=== PATIENT | female | born 2005 | race Hispanic/Latino ===

== ENCOUNTER 2025-03-11 03:40 | Emergency (ER) | payer MEDICAID ==
[~2025-03-11] VITALS: Ht 152.4 cm; Wt 131.5 kg
--- NOTE | 2025-03-11 03:45 | NUR ---
UA CUP PROVIDED
--- NOTE | 2025-03-11 04:21 | ERN ---
General Chief Complaint: Abdominal Pain Stated Complaint: ABD PAIN Time Seen by MD: 04:16 Source: patient History of Present Illness Initial Comments Patient is an obese 19-year-old female who comes in with pain starting in her subxiphoid process migrating out words and around to her back both sides for two days. Her only past medical history is a increased cholesterol. She has never had this pain before. No other symptoms. Allergies: Coded Allergies: No Known Allergies (Unverified Allergy, Unknown, 03/11/25) Past Medical History Past Medical History: No Pertinent History Past Surgical History: None Female( History) LMP: Feb 26, 2025 Constitutional: (-) chills, (-) diaphoresis, (-) fever, (-) malaise, (-) weakness, (-) other documentation EENTM: (-) eye pain, (-) blurred vision, (-) tearing, (-) double vision, (-) ear pain, (-) ear discharge, (-) nose pain, (-) nose congestion, (-) throat pain, (-) Throat swelling, (-) mouth pain, (-) tooth pain, (-) mouth swelling, (-) other documentation Respiratory: (-) cough, (-) orthopnea, (-) short of breath, (-) stridor, (-) wheezing, (-) other documentation Cardiovascular: (-) chest pain, (-) edema, (-) palpitations, (-) syncope, (-) dyspnea on exertion, (-) other documentation Gastrointestinal/Abdominal: (-) nausea, (-) vomiting, (-) diarrhea, (-) abdominal pain, (-) abdominal distention, (-) constipation, (-) rectal bleeding, (-) dark stool/melena, (-) other documentation Genitourinary: (-) vaginal discharge, (-) vaginal bleeding, (-) dysuria, (-) frequency, (-) hematuria, (-) pain, (-) other documentation Musculoskeletal: (-) Neck pain, (-) back pain, (-) Flank Pain, (-) joint pain, (-) joint swelling, (-) muscle pain, (-) muscle stiffness, (-) gout, (-) other documentation Skin: (-) laceration, (-) contusion, (-) abrasion, (-) abscess, (-) rash, (-) change in color, (-) change in hair, (-) change in nails, (-) diaphoresis, (-) dryness, (-) other documentation Neuro: (-) altered mental status, (-) headache, (-) syncope, (-) paralysis, (-) numbness, (-) seizure, (-) pre-existing deficit, (-) tremors, (-) weakness, (-) dizziness, (-) slurred speech, (-) vertigo, (-) other documentation Physical Exam General Appearance: (+) no apparent distress Orientation: (+) alert Head/Face Trauma: No Eye: bilateral eye normal inspection, bilateral eye PERRL, bilateral eye EOMI Ear, Nose, Throat: (+) hearing grossly normal, (+) normal ENT inspection Neck: (+) normal inspection, (+) supple Respiratory: (+) chest non-tender, (+) lungs clear, (+) well ventilated Heart: (+) regular, (+) no gallop Vascular: (+) no edema, (+) normal peripheral pulse Gastrointestinal: (+) soft, (+) non-tender, (+) bowel sound present Results Laboratory and Microbiology Lab and Micro Result Laboratory Tests Test 03/11/25 04:59 03/11/25 05:08 Urine Color YELLOW (YELLOW) Urine Appearance CLEAR (CLEAR) Urine pH 6.0 (5.0-8.0) Urine Specific [place] 1.026 (1.001-1.031) Urine Protein NEGATIVE mg/dL (NEGATIVE) Urine Glucose (UA) NEGATIVE mg/dL (NEGATIVE) Urine Ketones NEGATIVE mg/dL (NEGATIVE) Urine Occult Blood NEGATIVE (NEGATIVE) Urine Nitrate NEGATIVE (NEGATIVE) Urine Bilirubin NEGATIVE mg/dL (NEGATIVE) Urine Urobilinogen 2.0 mg/dL (0.2-1.0) H Urine Leukocyte Esterase NEGATIVE Emily/uL Urine RBC 0-1 /HPF (0-1) Urine WBC 2-5 /HPF (0-1) H Urine Squamous Epithelial Cells RARE /HPF (0-2) Urine Bacteria None /HPF (None Seen) White Blood Count 11.2 K/uL (4.8-10.8) H Red Blood Count 4.34 MIL/uL (4.00-5.50) Hemoglobin 12.1 g/dL (12.0-16.0) Hematocrit 37.2 % (36-48) Mean Corpuscular Volume 85.7 fL (80-100) Mean Corpuscular Hemoglobin 27.9 pg (27.0-33.0) Mean Corpuscular Hemoglobin Concent 32.5 g/dL (32.0-36.0) Red Cell Distribution Width 13.8 % (11.0-15.5) Platelet Count 318 K/uL (130-400) Mean Platelet Volume 10.5 fL (7.5-10.5) Immature Granulocyte % (Auto) 0.4 % (0-1) Neutrophils (%) (Auto) 71.4 % (40.0-77.0) Lymphocytes (%) (Auto) 20.3 % (21.0-51.0) L Monocytes (%) (Auto) 5.4 % (3.0-13.0) Eosinophils (%) (Auto) 1.2 % (0.0-8.0) Basophils (%) (Auto) 1.3 % (0.0-5.0) Neutrophils # (Auto) 8.0 K/uL (1.8-7.7) H Lymphocytes # (Auto) 2.3 K/uL (1.0-4.8) Monocytes # (Auto) 0.6 K/uL (0.1-1.0) Eosinophils # (Auto) 0.13 K/uL (0.00-0.70) Basophils # (Auto) 0.14 K/uL (0.00-0.20) Absolute Immature Granulocyte (auto 0.05 K/uL (0-1) Nucleated Red Blood Cells 0.0 % (0.0-0.19) MDM Patient was given a GI cocktail and it resolved her pain immediately. She is fine and would like to go home. I recommended that she start taking Pepcid. Surprisingly she has a very very slight elevated white blood cell count with no left shift. Urine was negative for infection. ED Course Orders Procedure Category Date Status Time Vital Signs Per CPOE 03/11/25 Transmitted Routine 03:45 Saline Lock Iv CPOE 03/11/25 Transmitted 03:45 Cbc With Differential LAB 03/11/25 Complete 03:45 Lipase LAB 03/11/25 In Process 03:45 Urinalysis Profile LAB 03/11/25 Complete 03:45 Basic Metabolic Panel LAB 03/11/25 In Process 03:45 Lidocaine Hcl 2% PHA 03/11/25 Complete Viscous (Lidocaine Hcl 04:30 Mag/Alum/Simeth 30ml PHA 03/11/25 Complete (Maalox Plus 30ml) 04:30 Dicyclomine Hcl PHA 03/11/25 Complete (Bentyl 10mg/5ml 04:30 Lactated Ringers PHA 03/11/25 Complete 1000ml (Lactated 04:20 Current Medications Medications (Trade) Dose Ordered Sig/Jason Route PRN Reason Start Time Stop Time Status Last Admin Dose Admin Al Hydroxide/Mg Hydroxide (MAALox PLUS 30ML) 30 ml ONCE ONCE PO 03/11/25 04:30 03/11/25 04:31 DC 03/11/25 05:10 Dicyclomine HCl (Bentyl 10mg/5ml Syrup) 10 mg ONCE ONCE PO 03/11/25 04:30 03/11/25 04:31 DC 03/11/25 05:11 Lactated Ringer's (Lactated Ringers 1000ml) 1,000 ml BOLUS STAT IV 03/11/25 04:20 03/11/25 04:27 DC 03/11/25 05:11 Lidocaine HCl (Lidocaine HCl 2% Viscous) 10 ml ONCE ONCE PO 03/11/25 04:30 03/11/25 04:31 DC 03/11/25 05:10 Vital Signs Date Time Temp Pulse Resp B/P (MAP) Pulse Ox O2 Delivery O2 Flow Rate FiO2 03/11/25 05:09 99.0 90 18 147/67 99 Room Air* 0 21 03/11/25 03:42 98.2 86 18 137/78 100 Room Air DX & DISP Disposition: Discharge Departure Impression: Primary Impression: GERD (gastroesophageal reflux disease) Condition: Stable Assign Patient to: Please take Pepcid at night before going to bed it will decrease the GERD please follow-up with your primary care doctor for tests to rule out Helicobacter pylori. Please also ask about sleep apnea testing. Referrals: SELF,REFERRAL (PCP) DARYN RODRIGEZ MD Mar 11, 2025 04:21
[2025-03-11] MEDS: MAG/ALUM/SIMETH 30 ML UDCUP PO ONE (05:10)
[2025-03-11] MEDS: LIDOCAINE HCL 2% VISCOUS 15 ML UDCUP PO ONE (05:10)
[2025-03-11 05:11] LABS: APPEARANCE,URINE CLEAR (CLEAR); BILIRUBIN,URINE NEGATIVE (NEGATIVE); COLOR,URINE YELLOW (YELLOW); GLUCOSE, URINE (UA) NEGATIVE (NEGATIVE); KETONES,URINE NEGATIVE (NEGATIVE); LEUKOCYTE ESTERASE ,URINE NEGATIVE Leu/uL (NEGATIVE); NITRATE,URINE NEGATIVE (NEGATIVE); OCCULT BLOOD,URINE NEGATIVE (NEGATIVE); PROTEIN,URINE NEGATIVE (NEGATIVE)
[2025-03-11] MEDS: LACTATED RINGERS 1000ML IV STA (05:11)
[2025-03-11] MEDS: DICYCLOMINE HCL 10 MG/5 ML ML PO ONE (05:11)
[2025-03-11 05:19] LABS: ADD UA MICROSCOPIC YES
[2025-03-11 05:20] LABS: MUCUS,URINE RARE LPF (None Seen); RBC,URINE 0-1 /HPF (0-1); SQUAMOUS EPITHELIAL CELL,UR RARE /HPF (0-2)
[2025-03-11 05:21] LABS: BASOPHILS # (AUTO) 0.14 K/uL (0.00-0.20); BASOPHILS % (AUTO) 1.3 % (0.0-5.0); EOSINOPHILS # (AUTO) 0.13 K/uL (0.00-0.70); EOSINOPHILS % (AUTO) 1.2 % (0.0-8.0); HEMATOCRIT 37.2 % (36-48); IMMATURE GRANULOCYTE ABSOLUTE 0.05 K/uL (0-1); LYMPHOCYTES # (AUTO) 2.3 K/uL (1.0-4.8); LYMPHOCYTES % (AUTO) 20.3 % (21.0-51.0); MEAN CORPUSCULAR HEMOGLOBIN 27.9 pg (27.0-33.0); MEAN CORPUSCULAR HGB CONC 32.5 g/dL (32.0-36.0); MEAN CORPUSCULAR VOLUME 85.7 fL (80-100); MONOCYTES # (AUTO) 0.6 K/uL (0.1-1.0); MONOCYTES % (AUTO) 5.4 % (3.0-13.0); NEUTROPHILS % (AUTO) 71.4 % (40.0-77.0); PLATELET COUNT (AUTO) 318 K/uL (130-400); RED BLOOD CELL COUNT(AUTO) 4.34 MIL/uL (4.00-5.50); RED CELL DISTRIBUTION WIDTH 13.8 % (11.0-15.5); WHITE BLOOD COUNT (AUTO) 11.2 K/uL (4.8-10.8)
[2025-03-11 05:40] LABS: CREATININE 0.6 mg/dL (0.5-1.0); POTASSIUM 3.8 mmol/L (3.5-5.1)
[2025-03-11 05:56] VITALS: BP 142/58; PULSE 74; RESP 18; TEMP 98.6; O2SAT 100
== END 2025-03-11 06:09 | disposition home or self-care (01) ==
LOC: EDH 03:40
DX: K21.9 Gastro-esophageal reflux disease without esophagitis (principal); E66.9 Obesity, unspecified; G47.30 Sleep apnea, unspecified
CPT/HCPCS: 99284; 96360; 80048; 83690; 85025; 81001; 36415; J7120

== ENCOUNTER 2025-06-10 10:29 | Emergency (ER) | payer SELFPAY ==
[~2025-06-10] VITALS: Ht 149.9 cm; Wt 123.4 kg
[2025-06-10 10:32] VITALS: BP 117/74; PULSE 78; RESP 16; TEMP 98.4; O2SAT 98
--- NOTE | 2025-06-10 10:47 | ERN ---
General Chief Complaint: Ankle Problem Stated Complaint: LEFT ANKLE PAIN Time Seen by MD: 10:30 Time Seen by Midlevel: 10:30 Source: patient History of Present Illness Initial Comments 19-year-old female who presents to the emergency department due to left ankle pain onset yesterday. Patient reports she was going down the stairs and missed a step causing her to twist her ankle. Patient is able to bear weight and ambulate. Has not taken any pain medication. Denies significant past medical history. Allergies: Coded Allergies: No Known Allergies (Unverified Allergy, Unknown, 03/11/25) Past Medical History Past Medical History: No Pertinent History Past Surgical History: None Female( History) LMP: May 15, 2025 ROS Dictation Constitutional: Negative for fever,chills, and weight loss Eyes: Negative for injury, pain,redness, and discharge ENT: Negative for injury,pain or swelling Cardiovascular: Negative for chest pain, palpitations, and edema Respiratory: Negative for shortness of breath, cough, and wheezing, Abdomen/GI: Negative for abdominal pain, nausea, vomiting, diarrhea, and consti pation Back: Negative for injury and pain : Negative for painful urination, bleeding or discharge MS/Extremity: Positive for left ankle pain. Negative for injury and deformity Skin: Negative for rash, and discoloration Neuro: Negative for headache, weakness, numbness, tingling, and seizure Psych: Negative for suicide ideation, homicidal ideation, and hallucinations Physical Exam Physical Exam Dictation General: awake, alert, no acute distress Head/Face: Normocephalic, atraumatic Eyes: PERRL, EOMI, normal conjunctiva Neck: Supple, normal range of motion Cardiovascular: RRR, normal S1/S2 Respiratory: CTAB, no respiratory distress Skin: Warm, dry, normal turgor, no rash MS/Extremity: Pulses equal, no cyanosis, neurovascular intact, FROM. Mild tenderness on the lateral malleolus and anterior aspect of the left ankle, normal range of motion, neurovascularly intact, no erythema, no ecchymosis. Neuro: COAx4, GCS 15, strength 5/5, CN 2-12 intact, normal cerebellar exam, normal gait Psych: Normal behavior, mood, and affect normal Results EKG/XRAY/US/CT/MRI X-RAY Comment REASON: pain, injury ORDERING PHYSICIAN: TERESA ELLIS PROCEDURE: [id number] - ANKLE COMP 3VWS LT EXAM: CR Left ankle, 3 View. CLINICAL HISTORY: pain, injury COMPARISON: None provided. FINDINGS: BONES: No acute fracture or aggressive appearing osseous lesion. JOINTS: The joint spaces appear within normal limits. No dislocation. No radiographic evidence of a joint effusion. SOFT TISSUES: Soft tissue swelling about the ankle. IMPRESSION: 1. No acute osseous injury. Soft tissue swelling about the ankle. /[place] DICTATED BY: QUINCY MUNOZ Jr., MD DATE: 06/10/25 1410 [facility] MDM: Differential diagnosis: Fracture, dislocation, sprain, strain Rationale: 19-year-old female who presents to the emergency department due to left ankle pain onset yesterday. Patient reports she was going down the stairs and missed a step causing her to twist her ankle. Patient is able to bear weight and ambulate. Has not taken any pain medication. Denies significant past medical history. Per physical examination patient is in no acute distress, mild tenderness to the lateral malleolus, anterior aspect of the left ankle, no ecchymosis, no erythema. X-rays obtained of the left ankle with no indications of fractures or dislocations. Patient was educated on findings and diagnosis. Left lower extremity placed on a short posterior splint. Advised to follow up with PCP. Return to the emergency department if any worsening symptoms. Patient verbalized understanding. Patient stable for discharge. There are no social concerns with this patient. I independently interpreted the test that were performed, results were reviewed by me and considered findings on radiology if ordered. Medical management and examination interpretation discussions were had by me with other qualified healthcare professionals as indicated for the patient's care. ED Course Orders Procedure Category Date Status Time Ankle Comp 3vws Lt RAD 06/10/25 Resulted 10:43 Acetaminophen 500mg PHA 06/10/25 Complete Tab (Tylenol 500mg T 11:00 Posterior Ankle Splint DOLORES.ER 06/10/25 Complete 12:06 Current Medications Medications (Trade) Dose Ordered Sig/Jason Route PRN Reason Start Time Stop Time Status Last Admin Dose Admin Acetaminophen (TYLenol 500MG TAB) 1,000 mg ONCE ONCE PO 06/10/25 11:00 06/10/25 11:01 DC 06/10/25 11:42 Vital Signs Date Time Temp Pulse Resp B/P (MAP) Pulse Ox O2 Delivery O2 Flow Rate FiO2 06/10/25 10:32 98.4 78 16 117/74 98 Room Air* 0 21 06/10/25 10:29 98.4 75 16 117/74 98 Room Air 0 DX & DISP Disposition: Discharge Departure Impression: Primary Impression: Ankle sprain Condition: Stable Additional Instructions: Discharge home. Rest. Follow up with primary care DrCharisse in 24 hours. Return to the ER for any acute changes or worsening symptoms. If any medications were prescribed take as directed. Okay to continue home medications unless otherwise discussed during your visit in the emergency room today. Patient was also advised to follow-up with primary care physician in 1 to 2 days for continued monitoring. Referrals: SELF,REFERRAL (PCP) I performed the substantive portion of the visit. I have reviewed and personally made and approve the management plan that is documented in the notes by myself or the MARGO. I acknowledge full responsibility for the patient's management plan. TERESA ELLIS Jun 10, 2025 10:47
--- NOTE | 2025-06-10 13:10 | HMCIMG ---
EXAM: CR Left ankle, 3 View. CLINICAL HISTORY: pain, injury COMPARISON: None provided. FINDINGS: BONES: No acute fracture or aggressive appearing osseous lesion. JOINTS: The joint spaces appear within normal limits. No dislocation. No radiographic evidence of a joint effusion. SOFT TISSUES: Soft tissue swelling about the ankle. IMPRESSION: 1. No acute osseous injury. Soft tissue swelling about the ankle. /[place]
== END 2025-06-10 12:35 | disposition home or self-care (01) ==
LOC: EDH 10:29
DX: S93.402A Sprain of unspecified ligament of left ankle, initial encounter (principal); X50.1XXA Overexertion from prolonged static or awkward postures, initial encounter; Y93.89 Activity, other specified; Y92.89 Other specified places as the place of occurrence of the external cause; Y99.8 Other external cause status
CPT/HCPCS: 29515; 73610; 99283